=== PATIENT | male | born 1950 | race Caucasian/White ===

== ENCOUNTER 2022-01-14 08:24 | Day surgery (SDC) | payer MEDICARE ==
[2022-01-13 12:02] VITALS: BMI 27.2
[~2022-01-14 08:24] MED LIST: LACTATED RINGERS 1,000 ML IV SCH; LIDOCAINE 1% (10MG/ML) FOR IV START INTRADERMA PRN
[2022-01-14 09:01] VITALS: TEMP 98.4
--- NOTE | 2022-01-14 09:45 | P.GSHP ---
History of Present Illness H&P Date: 01/14/22 Chief Complaint: GERD, screening colonoscopy This is a 71-year-old male presents today for EGD and screening colonoscopy. Issues with GERD. She denies any significant GI complaints. Past Medical History Additional Past Medical History / Comment(s): Pain in R side of abdomen History of Any Multi-Drug Resistant Organisms: None Reported Additional Past Surgical History / Comment(s): Colonoscopy, EGD Past Anesthesia/Blood Transfusion Reactions: No Reported Reaction Smoking Status: Never smoker - Past Family History Mother Family Medical History: No Reported History Medications and Allergies Home Medications Medication Instructions Recorded Confirmed Type No Known Home Medications 01/13/22 01/14/22 History Allergies Allergy/AdvReac Type Severity Reaction Status Date / Time No Known Allergies Allergy Verified 01/14/22 08:57 Surgical - Exam Vital Signs Temp Pulse Resp BP Pulse Ox 98.4 F 80 18 169/81 97 01/14/22 08:57 01/14/22 08:57 01/14/22 08:57 01/14/22 08:57 01/14/22 08:57 - General well developed, well nourished, no distress - Eyes PERRL - ENT normal pinna - Neck no masses - Respiratory normal expansion - Cardiovascular Rhythm: regular - Abdomen Abdomen: soft, non tender Assessment and Plan Assessment: GERD. We'll perform EGD. We will also perform screening colonoscopy
[2022-01-14] MEDS ORDERED: PROPOFOL 10 MG/ML 20 ML VIAL IV ONE (09:49)
--- NOTE | 2022-01-14 10:14 | P.OP ---
Date of Procedure: 01/14/22 Preoperative Diagnosis: GERD Screening colonoscopy Postoperative Diagnosis: Antral gastritis Moderate size sliding hiatal hernia Esophagitis Normal colon Procedure(s) Performed: EGD Colonoscopy Anesthesia: MAC Surgeon: John Walters Pathology: other (Antrum, esophagus) Condition: stable Disposition: PACU Description of Procedure: The patient's placed on the endoscopy table in the lateral position. He received IV sedation. The gastroscope placed oropharynx passed in the esophagus and stomach. Scope was then placed through the pylorus. The first and second portion of the duodenum appeared normal. Scope was then brought back to the antrum was mildly inflamed. A biopsies performed. The scope was then retroflexed and the remainder of the stomach appeared normal. The patient had a moderate size sliding hiatal hernia. The GE junction was at 38 cm. The distal esophagus appeared inflamed. There is evidence of inflammatory ring. This was biopsied. The proximal esophagus appeared normal. The scope was withdrawn for patient. Next digital rectal exam was performed. This revealed no ebonized. Flexible colonoscope was then placed patient anus and passed throughout the entire colon. The ileocecal valve was visualized. The cecum, ascending and transverse colon appeared normal. The descending and sigmoid colon appeared normal. The scope was then brought back the rectum and this was normal. Scope withdrawn for patient.
[2022-01-14] MEDS ORDERED: IV FLUID CONTINUATION 1,000 ML IV ONE (10:18)
[2022-01-14 10:22] VITALS: RESP 16
[2022-01-14 10:35] VITALS: BP 148/87; PULSE 80
== END 2022-01-14 10:49 | disposition home or self-care (01) ==
LOC: ORWHC2ENDO 08:24
PROVIDERS: ATTEND Surgery
DX: Z12.11 Encounter for screening for malignant neoplasm of colon (principal); K21.00 Gastro-esophageal reflux disease with esophagitis, without bleeding; K44.9 Diaphragmatic hernia without obstruction or gangrene; K29.50 Unspecified chronic gastritis without bleeding; Z97.2 Presence of dental prosthetic device (complete) (partial)
CPT/HCPCS: 88305; 88342; 43239; J2704; G0121

== ENCOUNTER → 2022-02-09 | Outpatient (CLI) | payer MEDICARE ==
--- NOTE | 2022-02-09 09:22 | NM ---
EXAMINATION TYPE: NM hepatobiliary w CCK DATE OF EXAM: 02/09/2022 COMPARISON: NONE HISTORY: K82.8 biliary dyskinesia TECHNIQUE: After the intravenous administration of 4.3 mCi Tc 99m Mebrofenin hepatobiliary scintigrap hy is performed. Immediate images post injection. FINDINGS: There is satisfactory initial accumulation of tracer by the liver. The gallbladder is visualized wit hin 10 minutes. The small bowel activity is noted within 42 minutes. At one hour CCK was administer ed, patient was injected with 1.7 mcg of Kinevac, and gallbladder ejection fraction is calculated at 78 %, in the normal range. Therefore there is no scintigraphic evidence of cystic or common bile miguel t obstruction to suggest acute cholecystitis or gallbladder dyskinesia. IMPRESSION: Exam is within normal limits.
== END | disposition home or self-care (01) ==
LOC: RADNMMAIN 06:35
PROVIDERS: ATTEND Surgery
DX: K82.8 Other specified diseases of gallbladder (principal)
CPT/HCPCS: 78227; A9537

== ENCOUNTER 2022-02-23 07:40 | Day surgery (SDC) | payer MEDICARE ==
[~2022-02-23 07:40] MED LIST changes: +ACETAMINOPHEN TAB 500 MG TAB PO PRN; +DEXAMETHASONE SOD PHOSPHATE 4 MG/ML 1 ML VIAL IV ONE; +HEPARIN SODIUM,PORCINE/PF 5,000 UNIT/0.5 ML SYRINGE SQ PRN; +HYDROmorphone 0.5 MG/0.5 ML SYRINGE IVP PRN; -LACTATED RINGERS 1,000 ML IV SCH; -LIDOCAINE 1% (10MG/ML) FOR IV START INTRADERMA PRN; +MIDAZOLAM 2 MG/2 ML VIAL IV PRN; +ONDANSETRON 4 MG/2 ML VIAL IVP ONE
[2022-02-23] MEDS: LACTATED RINGERS 1,000 ML IV SCH (08:25)
--- NOTE | 2022-02-23 09:07 | P.GSHP ---
History of Present Illness H&P Date: 02/23/22 Chief Complaint: GERD This a 71-year-old male who presents today for laparoscopic Prem fundal plication. The patient has been refractory to medical therapy. Patient's of the risks and benefits of surgery. Past Medical History Past Medical History: No Reported History Additional Past Medical History / Comment(s): Pain in R side of abdomen History of Any Multi-Drug Resistant Organisms: None Reported Past Surgical History: No Surgical Hx Reported Additional Past Surgical History / Comment(s): Colonoscopy, EGD Past Anesthesia/Blood Transfusion Reactions: No Reported Reaction Past Psychological History: No Psychological Hx Reported Smoking Status: Never smoker Past Alcohol Use History: Rare Past Drug Use History: None Reported - Past Family History Mother Family Medical History: No Reported History Medications and Allergies Home Medications Medication Instructions Recorded Confirmed Type No Known Home Medications 01/13/22 02/22/22 History Allergies Allergy/AdvReac Type Severity Reaction Status Date / Time amoxicillin Allergy Intermediate Rash/Hives Verified 02/23/22 08:33 clarithromycin Allergy Intermediate Rash/Hives Verified 02/23/22 08:34 Surgical - Exam Vital Signs Temp Pulse Resp BP Pulse Ox 98.6 F 85 18 163/78 96 02/23/22 08:12 02/23/22 08:12 02/23/22 08:12 02/23/22 08:12 02/23/22 08:12 - General well developed, well nourished, no distress - Eyes PERRL - ENT normal pinna - Neck no masses - Respiratory normal expansion - Cardiovascular Rhythm: regular - Abdomen Abdomen: soft, non tender Assessment and Plan Assessment: GERD. We'll perform laparoscopic Prem fundoplication.The patient has had long-standing problems with reflux esophagitis. The patient underwent recent EGD is found have evidence of esophagitis. Patient has been well informed on the procedure of laparoscopic Prem fundoplication. The patient is aware the risk of the conversion to the open procedure, risk of injury to the stomach, liver and spleen. The patient is also a risk of recurrent GERD and dysphagia symptoms. The patient understands there is a postoperative diet of full liquids for 2 weeks after surgery.
[2022-02-23] MEDS ORDERED: NEOSTIGMINE 1 MG/ML 10 ML VIAL ONE (09:31)
[2022-02-23] MEDS ORDERED: LIDOCAINE 2% INJ 20 MG/ML (2 ML VIAL) ONE (09:31)
[2022-02-23] MEDS ORDERED: ROCURONIUM 10 MG/ML (5 ML VIAL) IV ONE (09:31)
[2022-02-23] MEDS ORDERED: KETOROLAC 15 MG/ML 1 ML VIAL ONE (09:31)
[2022-02-23] MEDS ORDERED: GLYCOPYRROLATE 0.2 MG/ML 2 ML VIAL ONE (09:31)
[2022-02-23] MEDS ORDERED: fentaNYL (PF) 50 MCG/ML 2 ML AMP ONE (09:31)
[2022-02-23] MEDS ORDERED: PROPOFOL 10 MG/ML 20 ML VIAL IV ONE (09:31)
[2022-02-23] MEDS ORDERED: SUCCINYLCHOLINE CHLORIDE 200 MG/10 ML VIAL IV ONE (09:31)
[2022-02-23] MEDS ORDERED: MIDAZOLAM 2 MG/2 ML VIAL ONE (09:31)
[2022-02-23] MEDS ORDERED: BUPIVACAIN-EPI 0.25%-1:200,000 30 ML VIAL SQ ONE (09:57)
[2022-02-23] MEDS ORDERED: ONDANSETRON 4 MG/2 ML VIAL IVP PRN (10:33)
[2022-02-23] MEDS ORDERED: HYDROmorphone 1 MG/ML 1 ML SYRINGE IVP PRN (10:33)
--- NOTE | 2022-02-23 10:33 | P.OP ---
Date of Procedure: 02/23/22 Preoperative Diagnosis: GERD Postoperative Diagnosis: GERD Procedure(s) Performed: Laparoscopic Prem fundoplication Anesthesia: JOSE Surgeon: John Walters Estimated Blood Loss (ml): 5 Pathology: none sent Condition: stable Disposition: PACU Description of Procedure: The patient was placed on the operating table in the supine position. The patient received general anesthesia. And was placed in dorsal lithotomy position. The patient was prepped and draped in the usual sterile fashion. The skin incision sites were anesthetized with 1% local Xylocaine. The skin was incised in the left periumbilical area and then using a blade less 5 mm trocar under direct visualization panel cavity was entered. After adequate insufflation the laparoscope was then placed into the peritoneal cavity. Next a 5 mm trochars placed in the right epigastric position. Another 5 millimeter trocar the right lateral position. Another 5 millimeter trocar in the left lateral position a 5 mm trocar is placed in the left epigastric position. And then the initial 5 mm trocar was exchanged for a 10 mm trocar. The left lateral lobe liver was retracted. The hernia was seen. The crural defect was then dissected using the Harmonic scissors device. A 360 crural dissection was per formed the esophagus stomach was reduced back into the peritoneal Cavity. The crural defect was then closed using 2-0 Ethibond suture. Next the fundus of the stomach was mobilized using the [place] scissors device. and then a 58-[place] bougie dilator was placed oropharynx passed into the esophagus and stomach the fundal plication wrap was then performed by grasping the fundus posteriorly and bringing it around the esophagus and stomach fundoplication was then performed using 2-0 Ethibond suture. Care was taken that the fundal location rested over top of the intra-abdominal esophagus. There was no injury seen to the stomach or esophagus. The dilator was then withdrawn. The abdomen was irrigated there is no bleeding seen. The trochars were then withdrawn and then skin incision sites were closed using 3-0 Monocryl suture Steri-Strips are applied. Patient thought procedure well and sent to recovery room in stable condition.
[2022-02-23] MEDS ORDERED: LACTATED RINGERS 1,000 ML IV ONE ×2 (13:29)
[2022-02-23] MEDS: D5-0.45% NACL WITH KCL 20MEQ/L 1,000 ML IV SCH (15:47)
[2022-02-23 20:07] VITALS: RESP 18
[2022-02-24] MEDS: LACTATED RINGERS 1,000 ML IV SCH (06:33)
[2022-02-24] MEDS: D5-0.45% NACL WITH KCL 20MEQ/L 1,000 ML IV SCH ×2 (06:33→08:49)
[2022-02-24] MEDS ORDERED: ENOXAPARIN 30 MG/0.3 ML SYRINGE SQ SCH (09:00)
[2022-02-24] MEDS ORDERED: lisinopriL 5 MG TAB PO SCH (09:15)
[2022-02-24 09:41] VITALS: BP 159/80; PULSE 66; TEMP 98.4
--- NOTE | 2022-02-24 11:05 | P.CONS ---
History of Present Illness - Reason for Consult Consult date: 02/24/22 Medical management HTN Requesting physician: John Walters - Chief Complaint Gastroesophageal reflux disease, status post Prem - History of Present Illness This is a pleasant 71-year-old gentleman with past medical history of gastroesophageal reflux disease, BMI 27.3, status post laparoscopic Prem, postop day #1. Tolerated procedure well. Tolerating Prem clear liquid Diet with no nausea vomiting or diarrhea. Reports passing flatus, minimal abdominal pressure. Ambulating, tolerating exertion well. Denies lightheadedness, dizziness or focal deficits. Blood pressures trending on the higher side. Maintaining O2 sats in the high 90s on room air. Denies chest pain, palpitations or shortness of breath. Review of Systems Constitutional: Denied any fatigue denied any fever. Cardio vascular: denied any chest pain, palpitations Gastrointestinal denied any nausea vomiting Pulmonary: Denied any shortness of breath cough Neurologic denied any new focal deficits ROS Statement: Those systems with pertinent positive or pertinent negative responses have been documented in the HPI. ROS Other: All systems not noted in ROS Statement are negative. Past Medical History Past Medical History: No Reported History, GERD/Reflux Additional Past Medical History / Comment(s): Pain in R side of abdomen History of Any Multi-Drug Resistant Organisms: None Reported Past Surgical History: No Surgical Hx Reported Additional Past Surgical History / Comment(s): Colonoscopy, EGD Past Anesthesia/Blood Transfusion Reactions: No Reported Reaction Past Psychological History: No Psychological Hx Reported Smoking Status: Never smoker Past Alcohol Use History: Rare Past Drug Use History: None Reported - Past Family History Mother Family Medical History: No Reported History Medications and Allergies Home Medications Medication Instructions Recorded Confirmed Type lisinopriL [Zestril] 5 mg PO DAILY #30 tab 02/24/22 Rx Allergies Allergy/AdvReac Type Severity Reaction Status Date / Time amoxicillin Allergy Intermediate Rash/Hives Verified 02/23/22 08:33 clarithromycin Allergy Intermediate Rash/Hives Verified 02/23/22 08:34 Physical Exam Vitals: Vital Signs Temp Pulse Resp BP Pulse Ox 02/24/22 08:00 98.4 F 66 159/80 97 02/24/22 02:00 98.1 F 78 18 155/78 97 02/23/22 20:44 18 02/23/22 20:00 97.7 F 69 18 169/78 96 02/23/22 15:38 97.9 F 80 165/89 96 02/23/22 14:30 72 16 152/82 96 02/23/22 14:18 80 16 153/80 95 02/23/22 13:48 69 16 154/78 95 02/23/22 13:30 78 16 139/71 95 02/23/22 12:30 82 16 142/67 94 L 02/23/22 11:56 78 16 153/75 94 L 02/23/22 11:24 77 16 151/76 94 L 02/23/22 11:09 82 16 132/69 95 02/23/22 10:54 74 14 140/68 97 02/23/22 10:39 97.4 F L 94 16 174/72 95 Intake and Output 02/23/22 02/24/22 02/24/22 22:59 06:59 14:59 Intake Total 250 300 Balance 250 300 Intake: IV 250 Oral 300 Other: Voiding Method Toilet # Voids 1 2 Weight 86.3 kg PHYSICAL EXAM: VITAL SIGNS: [As above] GENERAL: Sitting up in chair, no acute distress HEENT: Conjunctivae normal. eyes normal. MMM. NECK: Supple, No JVD. No thyroid enlargement. No LNs CARDIOVASCULAR: S1, S2 regular.No murmur RESPIRATION: Unlabored,Breath sounds diminished in the bases. No rhonchi or crackles. No bronchial breathing. ABDOMEN: Soft, status post surgery, No guarding. Positive Bowel sounds heard. LEGS: No edema. no swelling PSYCHIATRY: Alert and oriented X3, mood and affect normal. NERVOUS SYSTEM: Cranial N 2-12 grossly normal. No focal deficits. Strength and sensation grossly intact. Skin: Warm and dry, no rash Assessment and Plan Assessment: Gastroesophageal reflux disease, status post laparoscopic Prem Obesity, BMI 27.3 Hypertension, new onset, reevaluate outpatient in clinic with PCP Plan: Continue on current medication regime ,monitoring and symptomatic treatment. Small dose of PROSPER inhibitor added to med regimen and will escribe as well for DC. Reevaluate outpatient [place] clinic with PCP, may be secondary to pain, possibly may not require outpatient. Follow-up with PCP in 1 week. The impression and plan of care has been dictated as directed. : I performed a history and examination of this patient, discussed the same with the dictator. I agree with the dictator's note ,documented as a scribe. Any additional findings or plans will be noted.
--- NOTE | 2022-02-24 12:20 | P.DS ---
Providers Expected date of discharge: 02/24/22 Attending physician: John Walters Consults: 02/23/22 10:33 Consult Physician Routine Consulting Provider: Ramiro Buchanan Consult Reason/Comments: Medical management Do you want consulting provider notified?: Yes Primary care physician: Stated None Hospital Course: This a 71-year-old male who underwent laparoscopic dislocation. Patient did well postoperative. Please see hospital for details. Procedures: Laparoscopic Prem fundal plication Patient Condition at Discharge: Good Plan - Discharge Summary Discharge Rx Participant: No New Discharge Prescriptions: New lisinopriL [Zestril] 5 mg PO DAILY #30 tab Ibuprofen [Motrin] 600 mg PO Q6HR PRN #40 tab PRN Reason: Pain Acetaminophen Tab [Tylenol] 650 mg PO Q6H #30 tab Discharge Medication List Acetaminophen Tab [Tylenol] 650 mg PO Q6H #30 tab 02/24/22 [Rx] Ibuprofen [Motrin] 600 mg PO Q6HR PRN #40 tab 02/24/22 [Rx] lisinopriL [Zestril] 5 mg PO DAILY #30 tab 02/24/22 [Rx] Follow up Appointment(s)/Referral(s): Ramiro Buchanan MD [STAFF PHYSICIAN] - 03/04/22 9:00 am John Walters MD [STAFF PHYSICIAN] - 03/04/22 2:00 pm Patient Instructions/Handouts: *Surgery [facility] - ([facility]) Lap Prem Fundiplication Post-Op Instructions, Hypertension (DC) Discharge Disposition: HOME SELF-CARE
[2022-02-24 13:06] VITALS: BMI 27.3
== END 2022-02-24 13:34 | disposition home or self-care (01) ==
LOC: OR 07:40 → 4SSUR 10:33 → OR 02-24 13:34
PROVIDERS: ATTEND Surgery
DX: K21.00 Gastro-esophageal reflux disease with esophagitis, without bleeding (principal); K46.9 Unspecified abdominal hernia without obstruction or gangrene; Z88.0 Allergy status to penicillin; Z88.3 Allergy status to other anti-infective agents; Z79.899 Other long term (current) drug therapy; I10 Essential (primary) hypertension; E66.9 Obesity, unspecified; Z68.27 Body mass index [BMI] 27.0-27.9, adult
CPT/HCPCS: 43280; J2250; J0330; J2710; J0690; J3010; J1650; J1885; J2704; J2001

== ENCOUNTER → 2022-06-08 | Outpatient (CLI) | payer MEDICARE ==
[2022-06-08 14:37] LABS: Basophils # (A) 0.05 X 10*3/uL (0.00-0.10); Basophils % (A) 0.6 %; Eosinophils # (A) 0.12 X 10*3/uL (0.04-0.35); Eosinophils % (A) 1.5 %; HCT 46.1 % (39.6-50.0); HGB 16.1 g/dL (13.0-17.0); Immature Grans, Automated 0.3 %; Lymphocytes # (A) 2.17 X 10*3/uL (0.90-5.00); Lymphocytes % (A) 27.3 %; MCH 31.2 pg (27.0-32.0); MCHC 34.9 g/dL (32.0-37.0); MCV 89.3 fL (80.0-97.0); Mean Platelet Volume 10.1 fL (9.5-12.2); Monocytes # (A) 0.97 X 10*3/uL (0.20-1.00); Monocytes % (A) 12.2 %; NRBC Per 100 WBC 0 /100 WBCS (0.0-0.0); Neutrophils # (A) 4.62 X 10*3/uL (1.80-7.70); Neutrophils % (A) 58.1 %; Platelet Count 289 X 10*3/uL (140-440); RBC 5.16 X 10*6/uL (4.40-5.60); RDW 12.3 % (11.5-14.5); WBC 7.95 X 10*3/uL (4.50-10.00)
== END | disposition home or self-care (01) ==
LOC: LABPAT 09:37
PROVIDERS: ATTEND Surgery
DX: Z01.812 Encounter for preprocedural laboratory examination (principal); K43.0 Incisional hernia with obstruction, without gangrene
CPT/HCPCS: 85025; 93005

== ENCOUNTER 2022-06-15 05:43 | Day surgery (SDC) | payer MEDICARE ==
[~2022-06-15 05:43] MED LIST changes: -DEXAMETHASONE SOD PHOSPHATE 4 MG/ML 1 ML VIAL IV ONE; -HYDROmorphone 0.5 MG/0.5 ML SYRINGE IVP PRN; -MIDAZOLAM 2 MG/2 ML VIAL IV PRN; -ONDANSETRON 4 MG/2 ML VIAL IVP ONE
[2022-06-15] MEDS ORDERED: DEXAMETHASONE SOD PHOSPHATE 4 MG/ML 1 ML VIAL IV ONE (06:14)
[2022-06-15] MEDS ORDERED: LIDOCAINE 1% (10MG/ML) FOR IV START INTRADERMA PRN (06:14)
[2022-06-15] MEDS: LACTATED RINGERS 1,000 ML IV SCH ×2 (06:43→07:45)
[2022-06-15] MEDS ORDERED: ONDANSETRON 4 MG/2 ML VIAL IVP PRN (07:00)
[2022-06-15] MEDS ORDERED: HYDROmorphone 0.5 MG/0.5 ML SYRINGE IVP PRN (07:00)
[2022-06-15] MEDS ORDERED: MIDAZOLAM 2 MG/2 ML VIAL IVP ONE (07:11)
[2022-06-15] MEDS ORDERED: fentaNYL (PF) 50 MCG/1 ML VIAL IVP ONE (07:13)
[2022-06-15] MEDS ORDERED: MIDAZOLAM 2 MG/2 ML VIAL ONE (07:42)
[2022-06-15] MEDS ORDERED: PROPOFOL 10 MG/ML 20 ML VIAL IV ONE (07:42)
[2022-06-15] MEDS ORDERED: KETOROLAC 15 MG/ML 1 ML VIAL ONE (07:42)
[2022-06-15] MEDS ORDERED: NEOSTIGMINE 1 MG/ML 10 ML VIAL ONE (07:42)
[2022-06-15] MEDS ORDERED: ROPIVACAINE 5 MG/ML 30 ML VIAL ONE (07:42)
[2022-06-15] MEDS ORDERED: SODIUM CHLORIDE 0.9% (PF) 10 ML VIAL ONE (07:42)
[2022-06-15] MEDS ORDERED: LIDOCAINE 4% LTA KIT (4 ML) TOPICAL ONE (07:42)
[2022-06-15] MEDS ORDERED: fentaNYL (PF) 50 MCG/ML 2 ML AMP ONE (07:42)
[2022-06-15] MEDS ORDERED: LIDOCAINE 2% INJ 20 MG/ML (2 ML VIAL) ONE (07:42)
[2022-06-15] MEDS ORDERED: KETAMINE 10 MG/ML 20 ML VIAL ONE (07:42)
[2022-06-15] MEDS ORDERED: ROCURONIUM 10 MG/ML (5 ML VIAL) IV ONE (07:42)
[2022-06-15] MEDS ORDERED: GLYCOPYRROLATE 0.2 MG/ML 2 ML VIAL ONE (07:42)
[2022-06-15] MEDS ORDERED: SUCCINYLCHOLINE CHLORIDE 200 MG/10 ML VIAL IV ONE (07:42)
[2022-06-15] MEDS ORDERED: BUPIVACAIN-EPI 0.25%-1:200,000 30 ML VIAL SQ ONE ×2 (07:53→08:07)
[2022-06-15] MEDS ORDERED: LACTATED RINGERS 1,000 ML IV ONE (08:08)
--- NOTE | 2022-06-15 08:42 | P.ANPRN ---
Procedure Note - Anesthesia - Nerve Block Performed Bilateral Rectus Abdominis Time Out Performed: Yes (07:10) Date of Procedure: 06/15/22 Procedure Start Time: :12 Procedure Stop Time: :18 Location of Patient: PreOp Indication: Acute Post-Operative Pain, Requested by Surgeon (Dr Walters) Sedation Type: Sedate with meaningful contact maintained Preparation: Sterile Prep Position: Supine Catheter: None Needle Types: Pajunk Needle Gauge: 21 Ultrasound used to visualize needle placement: Yes Ultrasound used to observe medication spread: Yes Injectate: 0.5% Ropivacaine (see comment for volume) (15cc +10cc PF Normal saline each side) Blood Aspirated: No Pain Paresthesia on Injection Noted: No Resistance on Injection: Normal Image Stored and Saved: Yes Events: Uneventful and Well Tolerated
[2022-06-15 09:03] VITALS: RESP 16; TEMP 97.1
--- NOTE | 2022-06-15 09:03 | P.GSHP ---
History of Present Illness H&P Date: 06/15/22 Chief Complaint: Incarcerated ventral hernia Is a 71-year-old male who presents today for laparoscopic robotic system repair of incarcerated ventral hernia. Patient complaints of a tender mass above his umbilicus. The mass is incarcerated. Past Medical History Past Medical History: GERD/Reflux Additional Past Medical History / Comment(s): Pain in R side of abdomen History of Any Multi-Drug Resistant Organisms: None Reported Additional Past Surgical History / Comment(s): 02/23/22 [place] FUNDOPLASTY. Colonoscopy, EGD Past Anesthesia/Blood Transfusion Reactions: No Reported Reaction Past Psychological History: No Psychological Hx Reported Smoking Status: Never smoker Past Alcohol Use History: Rare Past Drug Use History: None Reported - Past Family History Mother Family Medical History: No Reported History Medications and Allergies Home Medications Medication Instructions Recorded Confirmed Type Acetaminophen Tab [Tylenol] 650 mg PO Q6H #30 tab 02/24/22 06/15/22 Rx Ibuprofen [Motrin] 600 mg PO Q6HR PRN #40 tab 02/24/22 06/15/22 Rx Levothyroxine Sodium [Synthroid] 50 mcg PO QAM 06/11/22 06/15/22 History Acetaminophen Tab [Tylenol] 650 mg PO Q6H #30 tab 06/15/22 Rx Docusate [Colace] 100 mg PO BID #20 capsule 06/15/22 Rx Ibuprofen [Motrin] 600 mg PO Q6HR PRN #40 tab 06/15/22 Rx oxyCODONE HCL [OxyIR] 5 mg PO Q6H PRN 3 Days #10 tab 06/15/22 Rx Allergies Allergy/AdvReac Type Severity Reaction Status Date / Time amoxicillin Allergy Intermediate Rash/Hives Verified 06/15/22 06:22 clarithromycin Allergy Intermediate Rash/Hives Verified 06/15/22 06:22 Surgical - Exam Vital Signs Temp Pulse Resp BP Pulse Ox 97.6 F 80 20 177/84 98 06/15/22 07:07 06/15/22 07:07 06/15/22 07:07 06/15/22 07:07 06/15/22 07:07 - General well developed, well nourished, no distress - Eyes PERRL - ENT normal pinna - Neck no masses - Respiratory normal expansion - Cardiovascular Rhythm: regular - Abdomen 3 cm incarcerated ventral hernia located above the umbilicus Abdomen: soft, non tender Assessment and Plan Assessment: Incarcerated ventral hernia. We'll perform laparoscopic robotic system repair.
--- NOTE | 2022-06-15 09:08 | P.OP ---
Date of Procedure: 06/15/22 Preoperative Diagnosis: Incarcerated ventral hernia Postoperative Diagnosis: Incarcerated ventral hernia Procedure(s) Performed: Laparoscopic robotic system repair of incarcerated ventral hernia Partial omentectomy Transversus abdominis plane block Anesthesia: JOSE Surgeon: John Walters Estimated Blood Loss (ml): 5 Pathology: other (Incarcerated omentum) Condition: stable Disposition: PACU Description of Procedure: The patient was placed on the operating table in the supine position. He received general anesthesia. His abdomen was prepped and draped usual fashion. Using a 5 mm optical trocar under direct visualization the peritoneal cavity was entered in the left upper quadrant. The abdomen was then insufflated. The laparoscope was placed back into the perineal cavity. Next a 8 mm robotic trocar was placed in the left lower quadrant and a 12 mm robotic trocar was placed in the left lateral position. The original 5 mm trocar was exchanged for a 8 mm robotic trocar. The patient's placed in the left side up position. Next a 4 quadrant transverse is advised block was performed using 1% local Xylocaine. And the patient was docked to the robot. The incisional hernia was visualized. Using hook cautery the peritoneum over the incisional hernia was excised. Incarcerated omentum was dissected free and sent to pathology. The fascial opening was repaired using 0V LOC suture. Next a piece of 11 cm round ventral light ST mesh was placed into the. Cavity and secured with 2 OV lock suture. The patient was undocked the robot. The needles were retrieved. The fascia of the 12 mm trocar site was closed with 0 Ethibond suture. Skin was closed interrupted 3-0 Monocryl suture. Dermabond dressings was applied. Patient tolerated procedure well and was sent to recovery room stable condition.
[2022-06-15 10:31] VITALS: BP 159/78; PULSE 87
== END 2022-06-15 11:10 | disposition home or self-care (01) ==
LOC: OR 05:43
PROVIDERS: ATTEND Surgery
DX: K43.6 Other and unspecified ventral hernia with obstruction, without gangrene (principal); G89.18 Other acute postprocedural pain; K21.9 Gastro-esophageal reflux disease without esophagitis; Z86.59 Personal history of other mental and behavioral disorders; Z79.1 Long term (current) use of non-steroidal anti-inflammatories (NSAID); Z79.899 Other long term (current) drug therapy
CPT/HCPCS: 49655; 64486; 88305; C1781; J2250; J0330; J1100; J2710; J0690; J2405; J3010 ×2; J2795; J1885; J2704; J1644; J2001; 86850; 86900; 86901

== ENCOUNTER → 2023-03-02 | Outpatient (CLI) | payer MEDICARE | END | disposition home or self-care (01) | LOC: LABWHC1 14:42 | PROVIDERS: ATTEND Urology | DX: R97.20 Elevated prostate specific antigen [PSA] (principal) | CPT/HCPCS: 36415; 84153 ==

== ENCOUNTER → 2023-04-27 | Outpatient (CLI) | payer MEDICARE ==
[2023-04-27 10:59] LABS: Basophils # (A) 0.05 X 10*3/uL (0.00-0.10); Basophils % (A) 0.7 %; Eosinophils # (A) 0.15 X 10*3/uL (0.04-0.35); Eosinophils % (A) 2.2 %; HCT 43.8 % (39.6-50.0); Lymphocytes # (A) 2.12 X 10*3/uL (0.90-5.00); Lymphocytes % (A) 31.3 %; MCHC 34.2 d/dL (32.0-37.0); MCV 90.5 FL (80.0-97.0); Mean Platelet Volume 9.8 FL (9.5-12.2); Monocytes # (A) 0.89 X 10*3/uL (0.20-1.00); Monocytes % (A) 13.1 %; NRBC Per 100 WBC 0 X 10*3/uL (0.00-0.01); Neutrophils # (A) 3.54 X 10*3/uL (1.80-7.70); Neutrophils % (A) 52.4 %; Platelet Count 284 X 10*3/uL (140-440); RBC 4.84 X 10*6/uL (4.40-5.60); RDW 12.5 % (11.5-14.5); WBC 6.77 X 10*3/uL (4.50-10.00)
[2023-04-27 16:17] LABS: Blood Urea Nitrogen 15.5 mg/dL (9.0-27.0); Calcium 9.1 mg/dL (8.7-10.3); Carbon Dioxide 26.1 mmol/L (21.6-31.8); Chloride 104 mmol/L (96-109); Glucose 109 mg/dL (70-110); Potassium 4.2 mmol/L (3.5-5.5); Sodium 139 mmol/L (135-145)
[2023-04-27 16:18] LABS: Appearance,Urine Clear (Clear); Bilirubin,Urine Negative (Negative); Blood,Urine Negative (Negative); Color,Urine Yellow (Yellow); Ketones,Urine Negative (Negative); Nitrite,Urine Negative (Negative); Specific Gravity,Urine 1.012 (1.001-1.030); Urobilinogen,Urine 0.2 E.U./DL
== END | disposition home or self-care (01) ==
LOC: LABPAT 08:39
PROVIDERS: ATTEND Urology
DX: Z01.812 Encounter for preprocedural laboratory examination (principal); C61 Malignant neoplasm of prostate; R31.29 Other microscopic hematuria
CPT/HCPCS: 80048; 81003; 85025; 86850; 86900; 86901; 87086

== ENCOUNTER 2023-05-05 05:39 | Day surgery (SDC) | payer MEDICARE ==
--- NOTE | 2023-05-01 10:26 | P.HPIHPCON ---
History of Present Illness H&P Date: 05/01/23 Chief Complaint: Prostate cancer This is a 72-year-old male with history of selene 7 (4+3) prostate cancer . . Option of a robotic radical prostatectomy versus radiation therapy was discussed with him in detail. Risk and benefit of each approach was discussed. He agreed to proceed with a robotic radical prostatectomy, Aware of the risk which includes but not limited to bleeding, infection, injury to nearby organs. Discussed also risks of urinary incontinence and erectile dysfunction. Discussed also risk of cancer recurrence, potential need for additional treatment and need for postoperative surveillance. Risk of anesthesia was also discussed. He understood all the risk and agreed to proceed with a robotic radical prostatectomy with pelvic lymph node dissection Consent for Procedure: I have explained the operation/procedure to the patient, including the risks, benefits, side effects, alternative therapies (including not receiving the proposed treatment or service), the likelihood of the patient achieving his/her goals, and potential recuperation problems for the procedure/sedation/analgesia, as well as any blood products, if indicated. I also explained to the patient the risks, benefits and side effects of the alternatives, as well as the risks related to not receiving the proposed procedure, care, treatment, or services. Past Medical History Past Medical History: No Reported History, GERD/Reflux Additional Past Medical History / Comment(s): Pain in R side of abdomen History of Any Multi-Drug Resistant Organisms: None Reported Additional Past Surgical History / Comment(s): Colonoscopy, EGD Past Anesthesia/Blood Transfusion Reactions: No Reported Reaction Past Psychological History: No Psychological Hx Reported Smoking Status: Never smoker Past Alcohol Use History: Rare Past Drug Use History: None Reported - Past Family History Mother Family Medical History: No Reported History Medications and Allergies Home Medications Medication Instructions Recorded Confirmed Type Acetaminophen Tab [Tylenol] 650 mg PO Q6H #30 tab 02/24/22 06/15/22 Rx Ibuprofen [Motrin] 600 mg PO Q6HR PRN #40 tab 02/24/22 06/15/22 Rx Levothyroxine Sodium [Synthroid] 50 mcg PO QAM 06/11/22 06/15/22 History Acetaminophen Tab [Tylenol] 650 mg PO Q6H #30 tab 06/15/22 Rx Docusate [Colace] 100 mg PO BID #20 capsule 06/15/22 Rx Ibuprofen [Motrin] 600 mg PO Q6HR PRN #40 tab 06/15/22 Rx oxyCODONE HCL [OxyIR] 5 mg PO Q6H PRN 3 Days #10 tab 06/15/22 Rx Allergies Allergy/AdvReac Type Severity Reaction Status Date / Time amoxicillin Allergy Intermediate Rash/Hives Verified 06/15/22 06:22 clarithromycin Allergy Intermediate Rash/Hives Verified 06/15/22 06:22 Surgical - Exam - General no distress, no pain - Eyes normal ocular movement, no pale - ENT normal nares, normal mucosa - Respiratory normal expansion, normal respiratory effort - Abdomen Abdomen: soft, non tender - Psychiatric oriented to time, oriented to person, oriented to place Assessment and Plan Assessment: OR for robotic radical prostatectomy with pelvic lymph node dissection
[~2023-05-05 05:39] MED LIST changes: -ACETAMINOPHEN TAB 500 MG TAB PO PRN; +CLINDAMYCIN 600 MG in DEXTROSE 5% IN WATER 50 ML IVPB PRN; +GENTAMICIN 120 MG in SODIUM CHLORIDE 0.9% 100 ML IVPB PRN
[2023-05-05] MEDS ORDERED: ONDANSETRON 4 MG/2 ML VIAL IVP ONE (06:16)
[2023-05-05] MEDS ORDERED: DEXAMETHASONE SOD PHOSPHATE 4 MG/ML 1 ML VIAL IV ONE (06:16)
[2023-05-05] MEDS: LACTATED RINGERS 1,000 ML IV SCH ×2 (06:18→11:28)
[2023-05-05] MEDS ORDERED: HYDROmorphone 0.5 MG/0.5 ML SYRINGE IVP PRN (07:00)
[2023-05-05] MEDS ORDERED: MIDAZOLAM 2 MG/2 ML VIAL IVP ONE (07:12)
[2023-05-05] MEDS ORDERED: BUPIVACAINE (PF) 0.5% 30 ML VIAL SQ ONE ×2 (07:30)
[2023-05-05] MEDS ORDERED: LACTATED RINGERS 1,000 ML IV ONE (07:30)
--- NOTE | 2023-05-05 08:24 | P.ANPRN ---
Procedure Note - Anesthesia - Nerve Block Performed Bilateral Transversus Abdominis Single Date of Procedure: 05/05/23 Procedure Start Time: :11 Procedure Stop Time: : Location of Patient: PreOp Indication: Acute Post-Operative Pain, Analgesia, Requested by Surgeon Sedation Type: Sedate with meaningful contact maintained Preparation: Sterile Prep Position: Supine Catheter: None Needle Types: Pajunk Needle Gauge: 21 Ultrasound used to visualize needle placement: Yes Ultrasound used to observe medication spread: Yes Injectate: 0.5% Ropivacaine (see comment for volume) (Ropivacaine 0.5% 15 mls per side)
[2023-05-05] MEDS ORDERED: ROPIVACAINE 5 MG/ML 30 ML VIAL ONE (09:25)
[2023-05-05] MEDS ORDERED: LIDOCAINE 1% INJ 10MG/ML (20 ML MDV) ONE (09:25)
[2023-05-05] MEDS ORDERED: PROPOFOL 10 MG/ML 20 ML VIAL IV ONE (09:25)
[2023-05-05] MEDS ORDERED: SUCCINYLCHOLINE CHLORIDE 200 MG/10 ML VIAL IV ONE (09:25)
[2023-05-05] MEDS ORDERED: fentaNYL (PF) 50 MCG/ML 2 ML AMP ONE (09:25)
[2023-05-05] MEDS ORDERED: GLYCOPYRROLATE 0.2 MG/ML 2 ML VIAL ONE (09:25)
[2023-05-05] MEDS ORDERED: SODIUM CHLORIDE 0.9% (PF) 10 ML VIAL ONE (09:25)
[2023-05-05] MEDS ORDERED: HYDROmorphone (PF) 1 MG/ML ONE (09:25)
[2023-05-05] MEDS ORDERED: ROCURONIUM 10 MG/ML (5 ML VIAL) IV ONE (09:25)
[2023-05-05] MEDS ORDERED: NEOSTIGMINE 1 MG/ML 10 ML VIAL ONE (09:25)
[2023-05-05] MEDS ORDERED: HYDROmorphone 1 MG/ML 1 ML SYRINGE IVP PRN (11:07)
[2023-05-05] MEDS ORDERED: ONDANSETRON 4 MG/2 ML VIAL IVP PRN (11:07)
--- NOTE | 2023-05-05 12:04 | P.OP ---
Date of Procedure: 05/05/23 Preoperative Diagnosis: Prostate Cancer Postoperative Diagnosis: same Procedure(s) Performed: Robotic assisted laparoscopic radical prostatectomy with pelvic lymph node dissection Anesthesia: JOSE Surgeon: Oscar Huff Estimated Blood Loss (ml): 100 Pathology: other Condition: stable Disposition: PACU Indications for Procedure: This is a 72-year-old male with history of selene 7 (4+3) prostate cancer . . Option of a robotic radical prostatectomy versus radiation therapy was discussed with him in detail. Risk and benefit of each approach was discussed. He agreed to proceed with a robotic radical prostatectomy, Aware of the risk which includes but not limited to bleeding, infection, injury to nearby organs. Discussed also risks of urinary incontinence and erectile dysfunction. Discussed also risk of cancer recurrence, potential need for additional treatment and need for postoperative surveillance. Risk of anesthesia was also discussed. He understood all the risk and agreed to proceed with a robotic radical prostatectomy with pelvic lymph node dissection Description of Procedure: After preoperative antibiotics were started, the patient was taken to the operating room. Anesthesia was induced and the patient was placed in a supine position, with adequate padding of the pressure points, shoulders, back, legs and arms. He was then prepped and draped in the standard fashion. A critical pause was performed using two patient identifiers. A 16F ahumada catheter was placed to gravity drainage. A pneumo-peritoneum was created with placement of a Veress needle to 20 mm Hg without complication, and a 8 Fr trocar was placed above the umbillicus. Under direct vision a 8mm robotic ports was placed lateral to each rectus slightly below the camera port. The left iliac fossa 8mm port was placed. The right seed analysis laboratory assistant right iliac fossa 12mm port and right paramedian 5mm portwere placed. After the patient was placed in the trendelenberg position, the robot was then docked to the 8mm robotic ports and then each robotic arm and tower was checked in relation to the patient's legs and hands to avoid inadvertent compression. The peritoneal cavity was inspected. An inverted U-shaped incision began laterally to the left medial umbilical ligament and extended high across the midline to the right umbilical ligament. The limbs of the "U" extended to the level of the vasa on both sides. We next developed the preperitoneal space and the space of Retzius. Cautery was used to dissected the bladder away from the prostate. After the anterior bladder neck was incised and the bladder entered the the posterior bladder neck was exposed and the ureteral orifces identified. The posterior bladder neck was then incised and dissected away from the prostate. The vas and the seminal vesicles were now exposed and dissected to their insertions into the prostate and were not spared. The posterior layer of the Denonvillier's fascia was incised to enter tae the plane between prostate and perirectal fat. Each lateral pedicle was controlled with clips and cautery for hemostasis. No nerve preservation was performed on the right, partial nerve preservation was performed on the left. The puboprostatic ligament was incised where it inserted into the apex of the prostate and a plane between urethra and dorsal venous complex developed to expose the anterior urethral surface. The anterior wall of the urethra was transected with the cut setting a few millimeters distal to the apex of the prostate. The dorsal vein was ligated using 3-0 V lock bilateral obturator and external iliac lymph node packets were carefully dis sected after careful visualization of the hypogastric artery and obturator nerve. There was careful attention paid to hemostasis with judicious use of cautery. The urethrovesical anastomosis was performed . the posterior denovillers was reapproximated using 3-0 V lock. A 6 and 6 inch 3-0 V-Lock suture was used to anastomose the urethra and bladder, starting at the 6:00 posterior position. Mucosa was secured in every stitch, to ensure a mucosa to mucosa anastomosis. The stitch was regularly cinched and the anastomosis tightened. Care was taken to not violate the ureteral orifices. The Ahumada catheter was advanced, the bladder filled, and the anastomosis was tested, as described above. Anastomsis was watertight at 150 mL Given the patient had mesh along the midline, the prostate was extracted by extending the right lower quadrant incision The fascia was closed with 1-0-PDS suture in running fashion. All ports were closed with a subcuticular 4-0 monocryl and Dermabond. Sponge, instrument, and needle counts were correct at the end of the case x2. All specimens including prostate and lymph nodes were sent to pathology for diagnosis and will be available in a week. The patient tolerated the surgery well and without complication. He awoke without difficulty and was taken to the recovery room in stable condition
[2023-05-05] MEDS: ACETAMINOPHEN TAB 325 MG TAB PO SCH ×3 (13:50→23:24)
[2023-05-05] MEDS: KETOROLAC 15 MG/ML 1 ML VIAL IVP SCH ×3 (13:51→23:24)
[2023-05-05] MEDS: HEPARIN SODIUM,PORCINE 5,000 UNIT/ML 1 ML VIAL SQ SCH ×2 (15:29→23:22)
[2023-05-05] MEDS: D5-0.45% NACL WITH KCL 20MEQ/L 1,000 ML IV SCH ×2 (15:29→22:02)
[2023-05-06] MEDS: D5-0.45% NACL WITH KCL 20MEQ/L 1,000 ML IV SCH (05:45)
[2023-05-06] MEDS: ACETAMINOPHEN TAB 325 MG TAB PO SCH (05:46)
[2023-05-06] MEDS: KETOROLAC 15 MG/ML 1 ML VIAL IVP SCH (05:47)
[2023-05-06] MEDS ORDERED: LEVOTHYROXINE 50 MCG TAB PO SCH (06:30)
--- NOTE | 2023-05-06 08:28 | P.DS ---
Providers Expected date of discharge: 05/06/23 Attending physician: Oscar Huff MD Primary care physician: Stated None Hospital Course: On the day of admission, the patient underwent an uncomplicated RALP with pelvic lymphadenectomy. The perioperative course was unremarkable. The patient remained afebrile with stable vital signs. On the first postoperative day, he denied nausea, chest pain, and dyspnea. He reported minimal right-sided abdominal discomfort, and was tolerating breakfast. On examination, the abdomen was soft and non-distended. Incisions were clean and dry. The Matute catheter was draining clear urine. Procedures: Robotic-assisted laparoscopic prostatectomy (RALP) with bilateral pelvic lymphadenectomy on 05/05/2023 Patient Condition at Discharge: Good Plan - Discharge Summary Discharge Rx Participant: No New Discharge Prescriptions: New Ketorolac [Toradol] 10 mg PO Q6HR PRN #10 tab PRN Reason: Pain Ciprofloxacin HCl [Cipro] 250 mg PO Q12HR #6 tablet No Action Levothyroxine Sodium [Synthroid] 50 mcg PO QAM Acetaminophen Tab [Tylenol] 650 mg PO Q6H #30 tab Discharge Medication List Levothyroxine Sodium [Synthroid] 50 mcg PO QAM 06/11/22 [History] Acetaminophen Tab [Tylenol] 650 mg PO Q6H #30 tab 06/15/22 [Rx] Ciprofloxacin HCl [Cipro] 250 mg PO Q12HR #6 tablet 05/06/23 [Rx] Ketorolac [Toradol] 10 mg PO Q6HR PRN #10 tab 05/06/23 [Rx] Follow up Appointment(s)/Referral(s): Oscar Huff MD [STAFF PHYSICIAN] - 10 Days Activity/Diet/Wound Care/Special Instructions: Discharge home with Matute catheter. Instruct patient to use overnight drainage bag as well as urinary leg bag. Okay to shower. Diet as tolerated. No lifting, driving, or strenuous activity. Reassure patient that abdominal wall ecchymosis and penoscrotal swelling are normal. Instruct patient to begin taking antibiotics one day prior to Matute catheter removal. Discharge Disposition: HOME SELF-CARE
[2023-05-06] MEDS: HEPARIN SODIUM,PORCINE 5,000 UNIT/ML 1 ML VIAL SQ SCH (09:02)
[2023-05-06 09:14] VITALS: BP 138/64; PULSE 73; RESP 20; TEMP 98.1
== END 2023-05-06 11:47 | disposition home or self-care (01) ==
LOC: OR 05:39 → 4SSUR 11:20 → OR 05-06 11:47
PROVIDERS: ATTEND Urology
DX: C61 Malignant neoplasm of prostate (principal); K21.9 Gastro-esophageal reflux disease without esophagitis; Z79.1 Long term (current) use of non-steroidal anti-inflammatories (NSAID); G89.18 Other acute postprocedural pain; Z79.83 Long term (current) use of bisphosphonates; Z79.891 Long term (current) use of opiate analgesic; Z79.899 Other long term (current) drug therapy; Z88.0 Allergy status to penicillin; Z88.1 Allergy status to other antibiotic agents
CPT/HCPCS: 38571; 55866; S2900; 64488

== ENCOUNTER → 2024-08-21 | Outpatient (CLI) | payer MEDICARE ==
--- NOTE | 2024-08-21 12:08 | CA ---
Exercise Stress Test Report Name: Darrel Terry Exam Date: 08/21/2024 10:22 Exam Location: [place] Stress Ht (in): 71 Wt (lb): 185 BSA: 2.04 Ordering Phys: Betty Buchanan DO Referring Phys: Arabella Tomlinson Technologist: MATEUSZ NIEVES Age: 73 Gender: M : 1950 Procedure CPT: Indications: I49.3 VENTRICULAR PREMATURE POLARIZATION ICD-10 Codes: Patient History: PALP, HTN, FAMILY HX. Medications: SEE LIST, Meds past 24 hrs: Pretest Chest Pain: STRESS TEST Silvestre Protocol Exercise Duration (min:sec): 03:[address] Depressions (mm): Angina Score: Hernandez Score: Resting HR (bpm): 98 Peak HR (bpm): 148 Resting BP (mmHg): 150 / 92 Peak BP (mmHg): 224 / 75 MPHR: 147 Target HR: 125 % MPHR: 101 METS: 4.7 Total Dose: Peak Dose: Atropine: Double Product: 46622 BP Response: Stress Termination: TARGET HR REACHED/MAX EXERTION Stress Symptoms: NO SYMPTOMS Stress Summary: ECG ANALYSIS Resting ECG: Sinus rhythm. Normal conduction. Stress ECG: No significant ST or T wave changes suggestive of ischemia. No arrythmia CONCLUSIONS Poor exercise tolerance 4.7 METS only. Hypertensive response to ST or T wave changes. Nonischemic ECG response to exercise No exercise induced arrythmia Dr Eric Godoy (Electronically Signed) Final Date: 21 August 2024 12:07
--- NOTE | 2024-08-21 13:16 | NM ---
EXAMINATION TYPE: NM stress cardiolite complete DATE OF EXAM: 08/21/2024 COMPARISON: NONE CLINICAL INDICATION: Male, 73 years old with history of I49.3 VENTRICULAR PREMATURE POLARIZATION, TECHNIQUE: After the intravenous administration of 9.7 mCi Tc 99m Sestamibi - Cardiolite resting SPE CT images acquired 62 minutes post injection. At peak stress 26.8 mCi Tc 99m Sestamibi - Stress images obtained 46 minutes post injection The patient was stressed on the treadmill reaching greater than 85% predicted maximum heart rate. FINDINGS: No fixed defects are evident. No reversible stress defects on Spect images. Wall motion is normal. Ejection fraction is calculated to be 67 %. IMPRESSION: 1. No stress-induced ischemic changes. [facility], , 08/21/2024 1:14 PM
== END | disposition home or self-care (01) ==
LOC: RADNMMAIN 08:14
PROVIDERS: ATTEND Family Medicine
DX: I49.3 Ventricular premature depolarization (principal)
CPT/HCPCS: 93017; 78452; A9500